=== PATIENT | female | born 1960 | race Caucasian/White ===

== ENCOUNTER 2024-03-20 10:39 | Emergency (ER) | payer SELFPAY ==
[2024-03-20 10:42] VITALS: BP 156/67
[2024-03-20] MEDS: ATIVAN 1 MG PO (12:54)
[2024-03-20] MEDS: DECADRON 10 MG PO (12:54)
--- NOTE | 2024-03-20 12:58 | ED.GENMED ---
History of Present Illness
General
Chief Complaint: Alcohol Problem
Source: patient
Exam Limitations: none
Time Seen by Provider: 03/20/24 11:51
Nursing documentation reviewed up to this point in time: agreed with
History of Present Illness
History of Present Illness:
Patient with history of chronic alcoholism, presents to ED for medical clearance for transition to inpatient rehab facility. Patient denies fever or chills. Denies nausea, vomiting, or diarrhea. Patient has completed 3 courses of antibiotics
recently secondary to tooth infection with development of abscess. During treatment, patient also has had tooth extraction. Denies difficulty swallowing. Patient does report worsening GERD like symptoms, since taking antibiotics. Patient reports
last alcohol intake this morning. Denies use of any other illicit medications. Denies suicidal or homicidal ideation. Patient states that she has received routine blood work in the recent past, which have all been normal.
Review of Systems
Review of Systems
Allergies reviewed?: Yes
All Other Systems: ROS reviewed and negative except as documented in HPI and ROS
Constitutional: Reports no symptoms
EENT: Reports other (toothache)
Respiratory: Reports no symptoms
Cardiac: Reports no symptoms
ABD/GI: Reports no symptoms
Musculoskeletal: Reports no symptoms
Skin: Reports no symptoms
Neurological: Reports no symptoms
Phy Exam
Physical Exam
Physical Exam:
Physical Exam
General: no apparent distress, not acutely ill. afebrile
Head: nc/at. eomi
Neck: supple. no meningeal signs. normal posterior pharynx. poor dentition, without obvious gingival swelling.
Heart: s1/s2 regular rate and rhythm, no murmur. equal radial pulses.
Lungs: no acute respiratory distress. clear bilaterally
Abdomen: normal bowel sounds. not tender.
Neuro: alert and oriented. no focal neurological deficits
Skin: no rash
Psychiatric: well kept. interactive and cooperative
Extremities: no edema. no calf tenderness.
Scores
Withdrawal Assessment of Alcohol
Withdrawal Assessment Completed?: Not applicable
Course
Orders/Labs/Results
Orders:
Orders
03/20/24 12:48
Dexamethasone Pf [Decadron] 10 mg PO NOW STA
Lorazepam [Ativan] 1 mg PO NOW STA
Vital Signs
Initial and Last Documented VS:
Initial Vital Signs
Temp Pulse Resp BP Pulse Ox
98.9 F 111 18 156/67 97
03/20/24 10:42 03/20/24 10:42 03/20/24 10:42 03/20/24 10:42 03/20/24 10:42
Last Documented Vital Signs
Temp Pulse Resp BP Pulse Ox
98.9 F 111 18 156/67 97
03/20/24 10:42 03/20/24 10:42 03/20/24 10:42 03/20/24 10:42 03/20/24 10:42
MDM/Problems Addressed
MDM/Problems Addressed:
Patient is alert, awake, oriented, and is without any acute distress during evaluation. Patient is afebrile and hemodynamically stable. Based on exam and her history, no indication for any further investigation, i.e. blood work, at this time.
Patient is medically cleared, to be transition to inpatient rehab facility for further evaluation and treatment. As patient is continue to have toothache, likely postinfectious inflammation, without any evidence of obvious acute infection, patient
will be given 1 dose of Decadron for symptomatic relief. Patient will follow-up with her dentist and/or oral surgeon upon discharge from rehab facility for reevaluation.
*Critical Care Note
Total Time (30-74mins, 75-104mins- exclusive of procedures): Not Applicable
ED Attending Note
-
Portions of this chart may have been created with voice recognition software.� Occasional wrong word or��sound alike� substitutions may have occurred due to the inherent limitations of voice recognition software.
Discharge Plan
Departure
Patient Disposition: Acute Rehab Facility
Date of Disposition: 03/20/24
Time of Disposition: 13:04
Discharge Problem:
Alcoholism, Tooth ache
Instructions: Alcohol Use Disorder ED, Toothache
Activity Restrictions/Additional Instructions:
As discussed, you are medically cleared at this time to receive treatment at the inpatient alcohol rehab facility. However, upon discharge, strongly recommend following up with your dentist and/or oral surgeon for reevaluation, if you continue to
experience ongoing tooth pain.
Interventions
Interventions:
*Risk Screen - Suicide Last Done: 03/20/24 10:42
*General Assessment Last Done: 03/20/24 10:42
*Neglect/Abuse Screening Last Done: 03/20/24 10:42
*Nursing Disposition Last Done: 03/20/24 13:15
Discharge Date and Time
Discharge Date/Time: 03/20/24 13:15
Print Language: FRENCH
--- NOTE | 2024-03-20 13:33 | EDRN ---
Pt was overall cooperative, but did come to hallway to ask to go out for cigarette, informed no smoking. Lunch was provided. Meds as documented on SEP. Pt was updated by nursing and [facility] throughout her stay as to plan of care. Pt did come out to
hallway to complain to RN. Ambulated to [facility] with [facility].
== END 2024-03-20 13:15 ==
LOC: EMR 10:39
PROVIDERS: EMERGENCY PHYSICIAN Emergency Medicine
DX: F10.20 Alcohol dependence, uncomplicated (principal); K08.89 Other specified disorders of teeth and supporting structures; Z02.79 Encounter for issue of other medical certificate; I10 Essential (primary) hypertension; E78.5 Hyperlipidemia, unspecified; F41.9 Anxiety disorder, unspecified; F32.A Depression, unspecified; F19.11 Other psychoactive substance abuse, in remission; Z88.1 Allergy status to other antibiotic agents
CPT/HCPCS: 99283